=== PATIENT | male | born 1965 | race Caucasian/White ===

== ENCOUNTER 2023-12-09 08:57 | Day surgery (SDC) | payer OTHER, BC ==
[2023-12-02 15:11] VITALS: BMI 34.3
[2023-12-09] MEDS ORDERED: PROPOFOL 40 ML ONE (10:23)
[2023-12-09] MEDS ORDERED: ceFAZolin SODIUM 1 GM VIAL ONE ×2 (10:23→11:13)
[2023-12-09] MEDS ORDERED: MIDAZOLAM HCL 2 MG/2 ML SINGLE DOSE VIAL ONE (10:24)
[2023-12-09] MEDS ORDERED: TETRACAINE 0.5% OPHTH SOLN 2 ML BOTTLE ONE (10:58)
[2023-12-09] MEDS ORDERED: BUPIVACAINE HCL/PF 0.5% (5MG/ML) 10 ML VIAL ONE (10:58)
[2023-12-09] MEDS ORDERED: POVIDONE-IODINE 5% OPHTHALMIC PREP 30 ML SOLUTION ONE (10:58)
[2023-12-09] MEDS ORDERED: BACITRACIN/POLYMYXIN OPH OINT 3.5 GM TUBE ONE (10:58)
[2023-12-09] MEDS ORDERED: LIDOCAINE 1%/EPI 1:100000 (20 ML MULTI DOSE VIAL) ONE (10:59)
[2023-12-09] MEDS ORDERED: ePHEDrine SULFATE 50 MG/1 ML AMPULE ONE (12:02)
[2023-12-09] MEDS ORDERED: PROPOFOL 20 ML ONE (12:06)
[2023-12-09] MEDS ORDERED: ONDANSETRON 4 MG/2 ML VIAL IVPUSH PRN (12:45)
[2023-12-09] MEDS ORDERED: oxyCODONE HCL 5 MG TABLET PO PRN (12:45)
[2023-12-09] MEDS ORDERED: LACTATED RINGERS SOLUTION 1,000 ML IV SCH (12:45)
[2023-12-09 15:53] VITALS: RESP 16; TEMP 96.9
[2023-12-09 15:56] VITALS: BP 122/71; PULSE 68
== END 2023-12-09 14:30 | disposition home or self-care (01) ==
LOC: FASU 08:57
PROVIDERS: ATTEND Ophthalmology
PROC: 08BQ0ZZ Excision of Right Lower Eyelid, Open Approach (ICD-10-PCS; 2023-12-09)
PROC: 08BR0ZZ Excision of Left Lower Eyelid, Open Approach (ICD-10-PCS; principal; 2023-12-09 11:49)
DX: H04.203 Unspecified epiphora, bilateral (principal); H04.563 Stenosis of bilateral lacrimal punctum; H02.531 Eyelid retraction right upper eyelid; H02.535 Eyelid retraction left lower eyelid; H11.823 Conjunctivochalasis, bilateral
CPT/HCPCS: 94760

== ENCOUNTER 2024-10-05 12:24 | Emergency (ER) | payer OTHER, BC ==
[2024-10-05 12:45] VITALS: BP 129/89; PULSE 98; RESP 18; TEMP 98.6; BMI 30.9
[2024-10-05] MEDS ORDERED: DIPHTH,PERTUSS(ACELL),TET 0.5 ML DISP.SYRIN IM ONE (13:10)
[2024-10-05] MEDS ORDERED: ACETAMINOPHEN 325 MG TABLET (FP) ONE (13:10)
[2024-10-05] MEDS: DIPHTH,PERTUSS(ACELL),TET 0.5 ML DISP.SYRIN IM ONE (13:16)
[2024-10-05] MEDS: ACETAMINOPHEN 500 MG TABLET (FP) PO ONE (13:17)
[2024-10-05 18:06] LABS: HIV INTERPRETATION NEGATIVE (NEGATIVE)
[2024-10-05 18:08] LABS: HCV DIAGNOSTIC IN-HOUSE W/RFLX NON-REACTIVE (NONREACTIVE)
== END 2024-10-05 15:21 | disposition home or self-care (01) ==
LOC: FER 12:24
PROC: 0HQGXZZ Repair Left Hand Skin, External Approach (ICD-10-PCS; principal; 2024-10-05)
PROC: 3E0234Z Introduction of Serum, Toxoid and Vaccine into Muscle, Percutaneous Approach (ICD-10-PCS; 2024-10-05)
DX: S61.213A Laceration without foreign body of left middle finger without damage to nail, initial encounter (principal); Z23 Encounter for immunization; W01.0XXA Fall on same level from slipping, tripping and stumbling without subsequent striking against object, initial encounter
CPT/HCPCS: 12001-25; 36415; 73110-TC-LT-FY; 73130-TC-LT-FY; 86803; 87389; 90471; 90715; 99284-25

== ENCOUNTER 2024-10-18 10:57 | Emergency (ER) | payer OTHER, BC ==
[2024-10-18 11:17] VITALS: BP 127/77; PULSE 78; RESP 20; TEMP 98.4; BMI 32.2
== END 2024-10-18 11:53 | disposition home or self-care (01) ==
LOC: FER 10:57
DX: Z48.02 Encounter for removal of sutures (principal)
CPT/HCPCS: 99281-25

== ENCOUNTER 2024-11-01 08:16 | Day surgery (SDC) | payer OTHER, BC ==
[2024-10-28 13:10] VITALS: BMI 32.5
[2024-11-01 11:07] VITALS: PULSE 88; RESP 16; TEMP 97.6
[2024-11-01 11:09] VITALS: BP 101/61
== END 2024-11-01 11:15 | disposition home or self-care (01) ==
LOC: FASU-ENDO 08:16
PROVIDERS: ATTEND Internal Medicine Gastroenterology
PROC: 0DJD8ZZ Inspection of Lower Intestinal Tract, Via Natural or Artificial Opening Endoscopic (ICD-10-PCS; principal; 2024-11-01 09:56)
DX: Z12.11 Encounter for screening for malignant neoplasm of colon (principal); Z80.0 Family history of malignant neoplasm of digestive organs
CPT/HCPCS: 88305-TC